=== PATIENT | male | born 1955 | race Caucasian/White ===

== ENCOUNTER 2022-06-13 15:33 | Observation (INO) | payer BC, MEDICARE ==
[~2022-06-13] VITALS: Ht 187.9 cm; Wt 123.5 kg
[~2022-06-13 15:33] MED LIST: CLCX200C PO; GLIP10TA13 PO; MTF500T PO; OMEP-10 PO; methylin PO
[2022-06-14] VITALS (14 sets, daily range): BP systolic 121–191; BP diastolic 59–95
[2022-06-14] MEDS ORDERED: polyethylene glycoL POWDER 17 GM (MIRALAX) PACK PO PRN (13:30)
[2022-06-14] MEDS ORDERED: LACTULOSE SYRUP 10GM/15ML (ENULOSE) 30ML UDC PO PRN (13:30)
[2022-06-14] MEDS ORDERED: diphenhydrAMINE 25 MG TAB (BENADRYL) PO PRN (13:30)
[2022-06-14] MEDS ORDERED: ONDANSETRON 4 MG (ZOFRAN) ORAL DISSOLVE TAB PO PRN (13:30)
[2022-06-14] MEDS ORDERED: MILK OF MAGNESIA 400 MG/5 ML 30 ML UDC PO PRN (13:30)
[2022-06-14] MEDS ORDERED: ACETAMINOPHEN 325 MG TABLET PO PRN (13:30)
[2022-06-14] MEDS ORDERED: ONDANSETRON 4 MG/2 ML (SDV) Z0FRAN IV PRN (13:30)
[2022-06-14] MEDS ORDERED: diphenhydrAMINE 50 MG/ML INJ (BENADRYL) IVP PRN (13:30)
[2022-06-14] MEDS ORDERED: MELATONIN 3 MG TABLET PO PRN (13:30)
[2022-06-14] MEDS ORDERED: CALCIUM CARBONATE 500 MG (TUMS) TAB.CHEW PO PRN (13:30)
[2022-06-14] MEDS ORDERED: ANTACID SUSP 30 ML UDC (MYLANTA) PO PRN (13:30)
[2022-06-14] MEDS ORDERED: BISACODYL 10 MG SUPP (DULCOLAX) PR PRN (13:30)
[2022-06-14] MEDS ORDERED: RT-ALBUTEROL SULF 2.5 MG/3 ML PRE-MIX VIAL INH PRN (14:45)
--- NOTE | 2022-06-14 14:57 | History & Physical ---
KEENAN REAL 06/14/22 1457: History of Present Illness History of Present Illness Reason for visit/HPI Maximilian Fulton is a 66y/o M w/ a PMH of diabetes mellitus and HTN who presents due to occlusion of left popliteal artery. Pt was transferred here today from [place]. He reports that about 4 weeks ago he developed a scratch on the bottom of his foot after stepping on something, he is unsure exactly when he did it. Then 2 weeks ago he fell through a floor and scratched his left soto. Says that both areas were not causing him issues until 4 days ago when his left foot and leg began to swell and became painful. Went into the ER 2 days ago in [place] because of the pain and swelling. He was admitted there at this time. Pt states that during his stay there he was found to have an occlusion of his left popliteal artery. He did have a debridement done on his left foot today at [place] by Dr. Morris. Currently, he says that the pain in his foot is about a 5/10. Describes the pain as sharp. No previous history of blood clots. Denies having an SOB, cough, fever, or chills. Denies any pain or swelling in his other leg. When asked he denies having any other concerns. Date of Admission Jun 14, 2022 at 13:14 I consulted on this patient on 06/14/22 14:44 Attending Physician Suhas Joshi MD Admitting Physician Admitting Physician: Anne Holloway DO Attending Physician: Anne Holloway DO Consult Allergies and Home Medications Allergies Coded Allergies: morphine (Unverified Allergy, Unknown, 07/09/14) Patient Home Medication List Daptomycin (Daptomycin) 500 Mg Vial, 500 MG IV DAILY, (Reported) Entered as Reported by: SERGIO OLIVER on 06/14/221610 Last Action: Reviewed Gabapentin (Gabapentin) 100 Mg Capsule, 100 MG PO TID, (Reported) Entered as Reported by: SERGIO OLIVER on 06/14/221610 Last Action: Reviewed Hydrocodone/Acetaminophen (Hydrocodone-Acetamin 5-325 mg) 5 Mg-325 Mg Tablet, 1 EA PO Q4H PRN for PAIN-MODERATE (5-7), (Reported) Entered as Reported by: SERGIO OLIVER on 06/14/221610 Last Action: Reviewed Insulin Detemir (Levemir Flextouch) 100 Unit/Ml (3 Ml) Insuln.pen, 60 UNITS SC BID, (Reported) Entered as Reported by: SERGIO OLIVER on 06/14/221610 Last Action: Reviewed Insulin Regular, Human (NovoLIN R Flexpen) 100 Unit/Ml (3 Ml) Insuln.pen, 20 UNIT SQ AC, (Reported) Entered as Reported by: SERGIO OLIVER on 06/14/221610 Last Action: Reviewed Lisinopril (Lisinopril) 20 Mg Tablet, 20 MG PO DAILY, (Reported) Entered as Reported by: SERGIO OLIVER on 06/14/221610 Last Action: Reviewed Pantoprazole Sodium (Pantoprazole Sodium) 40 Mg Tablet.dr, 40 MG PO DAILY, (Reported) Entered as Reported by: SERGIO OLIVER on 06/14/221610 Last Action: Reviewed Discontinued Medications Celecoxib (Celebrex) 200 Mg Capsule, 1 EACH PO DAILY Discontinued Reason: No Longer Taking Prescribed by: TONY APONTE WCC on 11/03/131452 Last Action: Discontinued Glipizide (Glipizide) 10 Mg Tablet, 1 EACH PO DAILY Discontinued Reason: No Longer Taking Prescribed by: TONY APONTE WCC on 11/03/131452 Last Action: Discontinued Metformin Hcl (Metformin 500 Mg) 500 Mg Tablet, 1 EACH PO BID WITH MEALS Discontinued Reason: No Longer Taking Prescribed by: TONY APONTE WCC on 11/03/131452 Last Action: Discontinued Omeprazole (Prilosec 20 Mg) 20 Mg Capsule.dr, 20 MG PO DAILY Discontinued Reason: No Longer Taking Prescribed by: TONY APONTE WCC on 11/03/131452 Last Action: Discontinued [methylin] , 10 TAB PO BID Discontinued Reason: No Longer Taking Prescribed by: TONY APONTE WCC on 11/03/131452 Last Action: Discontinued Past Otzwtpi-Cpwqfu-Zoruhm Hx Patient Social History Marrital Status: Employed/Student: retired Tobacco Use?: No Smoking Status: Never a Smoker Substance use?: No Alcohol Use?: Yes Alcohol type: Beer Alcohol Frequency: Daily Pt feels they are or have been: No Immunizations Up To Date Tetanus Booster (TDap): Less Than 5 Years Hepatitis A: No Hepatitis B: No Current Status Advance Directives: No Advance Directive Location: Unable to obtain copy Communicates: Verbally Primary Language: Kyrgyz Preferred Spoken Language: Kyrgyz Sensory deficits: Vision impairment Past Medical History Surgeries: Orthopedic (rotor cuff, carpal tunnel release x3) Hypertension Diabetes, Non-Insulin dep Family Medical History No Pertinent Family Hx Review of Systems Constitutional: No chills, No fever EENTM: No blurred vision, No double vision Respiratory: No cough, No dyspnea on exertion Cardiovascular: No chest pain, No palpitations Gastrointestinal: No abdominal pain, No nausea, No vomiting Genitourinary: No dysuria, No hematuria Musculoskeletal: No back pain; joint swelling (left leg) Psychiatric/Neurological: Denies Headache, Denies Numbness, Denies Paresthesia Physical Exam Vital Signs Vital Signs - First Documented 06/14/22 06/14/22 13:30 14:25 Temp 37.1 Pulse 68 Resp 19 B/P (MAP) 189/94 (125) Pulse Ox 99 O2 Delivery Room Air Capillary Refill : Height, Weight, BMI Height: '" Weight: lbs. oz. kg; 34.75 BMI Method: General Appearance: No Apparent Distress, WD/WN HEENT: PERRL/EOMI; No Photophobia Neck: Non Tender, Supple Respiratory: Chest Non Tender, Lungs Clear, Normal Breath Sounds, No Accessory Muscle Use, No Respiratory Distress Cardiovascular: Regular Rate, Rhythm, No Murmur, Normal Peripheral Pulses Gastrointestinal: Non Tender, Soft Extremity: No Calf Tenderness, Inflammation (left leg to knee), Swelling (left leg to the knee), Other (wound on plantar surface of left foot that was debrided today, scrap on left soto) Neurologic/Psychiatric: Alert, Oriented x3, Normal Mood/Affect Skin: Erythema (left leg to knee) Lymphatic: No Adenopathy Assessment/Plan Assessment and Plan Occlusion of left popliteal artery -cardiology consulted (Dr. Corbett) -lovenox started -start pain control medications -NPO for possible procedure S/p debridement of left plantar surface of foot -done today at [place] by Dr. Morris -start daptomycin -pain control -regular dressing changes -monitor for signs of infection Diabetes mellitus type 2 -start levemir -sliding scale insulin -will need diabetic diet when able to eat Hypertension -will defer to management to cardiology DVT prophylaxis: lovenox, SCDs contraindicated due to current thrombus GI prophylaxis: protonix Code status: full code Diet:NPO Clinical Quality Measures DVT/VTE Risk/Contraindication: Contraindications-Mechi: Other *list below* Other: ANNE Lerner DO 06/14/222109: History of Present Illness History of Present Illness Reason for visit/HPI CC: Left leg arterial vascular disease in need of stent with intervention HPI: This is a gentleman who sees Dr. Suhas Joshi as an outpatient. He has a past medical history of diabetes. He is noncompliant with insulin for quite some time. HgA1C is 12. He moved from [facility] to higher level of care at [facility] due to peripheral catheterization needed by Dr. Corbett due to arterial ultrasound showing blockage of the left popliteal artery. That would facilitate healing of the left foot wound, status post debridement by Dr. Morris. Maintained on Daptomycin through PICC line 500 mg IV daily. His blood sugars are much better but still requiring Levemir 60 units BID and Novolin regular insulin 20 units before meals. Date Seen by a Provider: Jun 14, 2022 Time Seen by a Provider: 14:00 Allergies and Home Medications Allergies Coded Allergies: morphine (Unverified Allergy, Unknown, 07/09/14) Patient Home Medication List Home Medication List Reviewed: Yes Daptomycin (Daptomycin) 500 Mg Vial, 500 MG IV DAILY, (Reported) Entered as Reported by: SERGIO OLIVER on 06/14/221610 Last Action: Reviewed Gabapentin (Gabapentin) 100 Mg Capsule, 100 MG PO TID, (Reported) Entered as Reported by: SERGIO OLIVER on 06/14/221610 Last Action: Reviewed Hydrocodone/Acetaminophen (Hydrocodone-Acetamin 5-325 mg) 5 Mg-325 Mg Tablet, 1 EA PO Q4H PRN for PAIN-MODERATE (5-7), (Reported) Entered as Reported by: SERIGO OLIVER on 06/14/221610 Last Action: Reviewed Insulin Detemir (Levemir Flextouch) 100 Unit/Ml (3 Ml) Insuln.pen, 60 UNITS SC BID, (Reported) Entered as Reported by: SERGIO OLIVER on 06/14/221610 Last Action: Reviewed Insulin Regular, Human (NovoLIN R Flexpen) 100 Unit/Ml (3 Ml) Insuln.pen, 20 UNIT SQ AC, (Reported) Entered as Reported by: SERGIO OLIVER on 06/14/221610 Last Action: Reviewed Lisinopril (Lisinopril) 20 Mg Tablet, 20 MG PO DAILY, (Reported) Entered as Reported by: SERGIO OLIVER on 06/14/221610 Last Action: Reviewed Pantoprazole Sodium (Pantoprazole Sodium) 40 Mg Tablet.dr, 40 MG PO DAILY, (Reported) Entered as Reported by: SERGIO OLIVER on 06/14/221610 Last Action: Reviewed Discontinued Medications Celecoxib (Celebrex) 200 Mg Capsule, 1 EACH PO DAILY Discontinued Reason: No Longer Taking Prescribed by: TONY APONTE WCC on 11/03/131452 Last Action: Discontinued Glipizide (Glipizide) 10 Mg Tablet, 1 EACH PO DAILY Discontinued Reason: No Longer Taking Prescribed by: TONY APONTE WCC on 11/03/131452 Last Action: Discontinued Metformin Hcl (Metformin 500 Mg) 500 Mg Tablet, 1 EACH PO BID WITH MEALS Discontinued Reason: No Longer Taking Prescribed by: TONY APONET WCC on 11/03/131452 Last Action: Discontinued Omeprazole (Prilosec 20 Mg) 20 Mg Capsule.dr, 20 MG PO DAILY Discontinued Reason: No Longer Taking Prescribed by: TONY APONTE WCC on 11/03/131452 Last Action: Discontinued [methylin] , 10 TAB PO BID Discontinued Reason: No Longer Taking Prescribed by: TONY APONTE WCC on 11/03/131452 Last Action: Discontinued Past Hshoolm-Fgvcou-Rvgdan Hx Patient Social History Marrital Status: Employed/Student: retired Past Medical History Hypertension Diabetes, Insulin dep Review of Systems Constitutional: see HPI Physical Exam General Appearance: No Apparent Distress, WD/WN Eyes: Bilateral Eye Normal Inspection, Bilateral Eye PERRL, Bilateral Eye EOMI HEENT: PERRL/EOMI, TMs Normal, Normal ENT Inspection, Pharynx Normal Neck: Full Range of Motion, Normal Inspection, Non Tender, Supple, Carotid Bruit Respiratory: Chest Non Tender, Lungs Clear, Normal Breath Sounds, No Accessory Muscle Use, No Respiratory Distress Cardiovascular: Regular Rate, Rhythm, No Edema, No Gallop, No JVD, No Murmur, Normal Peripheral Pulses Gastrointestinal: Normal Bowel Sounds, No Organomegaly, No Pulsatile Mass, Non Tender, Soft Back: Normal Inspection, No CVA Tenderness, No Vertebral Tenderness Extremity: Normal Capillary Refill, Normal Inspection, Normal Range of Motion, Non Tender, No Calf Tenderness, No Pedal Edema Neurologic/Psychiatric: Alert, Oriented x3, No Motor/Sensory Deficits, Normal Mood/Affect Skin: Normal Color, Warm/Dry Lymphatic: No Adenopathy Assessment/Plan Assessment and Plan Assessment: Left DM ulcer with abscess s/p debridement Left leg cellulitis 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 I reviewed and verified all information documented by the medical student and made modifications to such information, when appropriate. I personally performed the physical exam and medical decision making. Anne Holloway, Jun 14, 2022,21:10 KEENAN REAL Jun 14, 2022 14:57 ANNE HOLLOWAY DO Jun 14, 2022 21:10
[2022-06-14] MEDS: ENOXAPARIN 40 MG/0.4 ML (LOVENOX) SYR SC SCH (15:06)
[2022-06-14] MEDS: NS IV 1000 ML 1,000 ML IV SCH (15:06)
[2022-06-14] MEDS: HYDROmorphone 2 MG/ML VIAL (DILAUDID) IV PRN ×2 (15:15→20:23)
[2022-06-14] MEDS ORDERED: DAPT500V18 IV (16:11)
[2022-06-14] MEDS ORDERED: LISI20TA26 PO (16:11)
[2022-06-14] MEDS ORDERED: GABA-486 PO (16:11)
[2022-06-14] MEDS ORDERED: INSU100I29 SC (16:11)
[2022-06-14] MEDS ORDERED: ACHD5005 PO (16:11)
[2022-06-14] MEDS ORDERED: PANT40TA52 PO (16:11)
[2022-06-14] MEDS ORDERED: INSU100I51 SQ (16:11)
[2022-06-14] MEDS: inSUlin ASPART (NovoLOG) 1 UNIT/0.01 ML (CHARGE PER UNIT) SC SCH ×2 (16:37→21:37)
--- NOTE | 2022-06-14 17:02 | CONSULTATION REPORT ---
DATE OF SERVICE: 06/14/2022 ADMITTING PHYSICIAN: Dr. Lyle. HISTORY OF PRESENT ILLNESS: The patient is a 66-year-old male who was admitted to [facility] for pain along the left foot. He had reported an area overlying the first metatarsophalangeal joint region along the plantar surface that became irritated and then did open up. This area became painful as well. He was admitted and placed on IV antibiotics and underwent debridement. A duplex ultrasound was performed of the extremity, which did show a good triphasic flow through the superficial femoral arteries bilaterally; however, along the left lower extremity only monophasic flow through the popliteal and at the trifurcation with the posterior tibial, peroneal as well as anterior tibial arteries with pressures only approximately 60 mmHg. The patient was transferred to [facility] for possible revascularization. PAST MEDICAL HISTORY: Peripheral vascular disease, diabetes, hypertension, degenerative joint disease. PAST SURGICAL HISTORY: Laparoscopic cholecystectomy, carpal tunnel release bilaterally, rotator cuff repair. ALLERGIES: MORPHINE. MEDICATIONS: Celebrex 200 mg daily, glipizide 10 mg daily, metformin 500 mg b.i.d., omeprazole 20 mg daily, 10 tabs b.i.d. SOCIAL HISTORY: Negative smoke, negative alcohol. FAMILY HISTORY: Noncontributory. VITAL SIGNS: Temperature 37.1, blood pressure 150/77, pulse 70, respirations 28, pulse ox 95% on room air. REVIEW OF SYSTEMS: Well-nourished male currently in no acute distress. He is not experiencing any shortness of breath or difficulty breathing. No chest pain, palpitations, diaphoresis. No nausea, vomiting, no diarrhea or constipation. No fever, chills, no recent inadvertent weight loss with pain along the plantar aspect of the left foot. PHYSICAL EXAMINATION: CHEST: Few scattered rales bilaterally. HEART: Regular, no murmurs. EXTREMITIES: No lower extremity edema, negative Homans sign with a warm left foot, likely secondary to reactive hyperemia. There is an open wound along the plantar surface of the first metatarsophalangeal joint. This appears to be viable with no purulence, nonpalpable posterior tibial or dorsalis pedis. The right lower extremity posterior tibial and dorsalis pedis pulses are palpable. HEENT: No scleral icterus. NECK: No cervical lymphadenopathy. ABDOMEN: Soft, nontender, nondistended. SKIN: Warm, dry. ASSESSMENT AND PLAN: A 66-year-old male with diabetic peripheral atherosclerosis and peripheral vascular disease causing diabetic foot ulcer and arterial insufficiency of the left lower extremity. The open wound has been debrided and does look to be intact. He will be seen by Cardiology in hopes of proceeding with aortogram, bilateral runoff and potential intervention with angioplasty and stent placement to allow for revascularization to allow the area to heal. For now, we will recommend continued dressing changes; however, wound care has been consulted and once they have made their recommendations, we recommend continuation of those directions. Job ID: [id number] DocumentID: [id number] Dictated Date: 06/14/2022 16:06:25 Geographic Information System Surveyor Date: 06/14/2022 17:01:17 Dictated By: MARIAMA MAS MD
[2022-06-14] MEDS ORDERED: amLODIPine 5 MG (NORVASC) TAB PO ONE (20:30)
[2022-06-14] MEDS: SENNOSIDES 8.6 MG (SENOKOT) TAB PO SCH (21:36)
[2022-06-14] MEDS: DOCUSATE SODIUM 100 MG (COLACE) CAP PO SCH (21:36)
[2022-06-15] VITALS (7 sets, daily range): BP systolic 111–143; BP diastolic 65–98
[2022-06-15] MEDS: HYDROmorphone 2 MG/ML VIAL (DILAUDID) IV PRN ×8 (01:46→22:37)
[2022-06-15] MEDS: NS IV 1000 ML 1,000 ML IV SCH ×2 (05:45→13:30)
[2022-06-15 06:06] LABS: BASOPHILS # (AUTO) 0.1 10^3/uL (0.0-0.1); BASOPHILS % (AUTO) 1 % (0-10); EOSINOPHILS # (AUTO) 0.2 10^3/uL (0.0-0.3); EOSINOPHILS % (AUTO) 2 % (0-10); HEMATOCRIT 36 % (40-54); HEMOGLOBIN 11.9 g/dL (13.3-17.7); LYMPHOCYTES # (AUTO) 2.4 10^3/uL (1.0-4.0); LYMPHOCYTES % (AUTO) 24 % (12-44); MEAN CORPUSCULAR HEMOGLOBIN 30 pg (25-34); MEAN CORPUSCULAR HGB CONC 33 g/dL (32-36); MEAN CORPUSCULAR VOLUME 92 fL (80-99); MEAN PLATELET VOLUME 12.5 fL (9.0-12.2); MONOCYTES # (AUTO) 1.1 10^3/uL (0.0-1.0); MONOCYTES % (AUTO) 10 % (0-12); NEUTROPHILS # (AUTO) 6.5 10^3/uL (1.8-7.8); NEUTROPHILS % (AUTO) 63 % (42-75); PLATELET COUNT 229 10^3/uL (130-400); WHITE BLOOD COUNT 10.3 10^3/uL (4.3-11.0)
[2022-06-15] MEDS: inSUlin ASPART (NovoLOG) 1 UNIT/0.01 ML (CHARGE PER UNIT) SC SCH ×5 (06:08→21:02)
[2022-06-15 06:20] LABS: ALBUMIN 3.4 GM/DL (3.2-4.5); POTASSIUM 3.9 MMOL/L (3.6-5.0)
[2022-06-15 06:21] LABS: CALCIUM 8.5 MG/DL (8.5-10.1)
[2022-06-15 06:22] LABS: TOTAL PROTEIN 6.6 GM/DL (6.4-8.2)
[2022-06-15 06:24] LABS: BILIRUBIN,TOTAL 0.8 MG/DL (0.1-1.0)
[2022-06-15 06:26] LABS: CREATININE SERUM 0.9 MG/DL (0.60-1.30)
[2022-06-15] MEDS ORDERED: HEParin (CATH LAB) 2,000 ML IV ONE (07:35)
[2022-06-15] MEDS ORDERED: LIDOCAINE 1% INJ 20 ML VIAL ONE (07:35)
--- NOTE | 2022-06-15 07:55 | Consultation-Cardiology ---
HPI-Cardiology Cardiology Consultation Date of Consultation 06/15/22 Date of Admission Time Seen by Provider: 07:51 Indication: Foot ulcer HPI 66 years old gentleman with history of diabetes mellitus, hypertension hyperlipidemia and sleep apnea. Sustained an injury to his left foot. Had nonhealing wound. Was admitted to [facility] and underwent debridement, arterial Doppler suggestive of popliteal occlusion. He was transferred to [place] for peripheral angiogram and possible intervention. He denied any previous cardiac history, no chest pain or shortness of breath, occasional leg cramps but reported that he is able to walk for over a mile without difficulties. Home Medications & Allergies Allergies: Coded Allergies: morphine (Unverified Allergy, Unknown, 07/09/14) Home Medication List Reviewed: Yes GNB-Suzrvz-Micfrd Hx Patient Social History Marital Status: Employed/Student: retired Smoking Status: Never a Smoker Have you traveled recently?: No Alcohol Use?: Yes Past Medical History Discussed below Family Medical History Significant Family History: No Pertinent Family Hx Family Medical Hx Noncontributory Review of Systems-General Review of Systems Constitutional: see HPI, weakness EENTM: No blurred vision, No double vision Respiratory: see HPI; No cough, No dyspnea on exertion Cardiovascular: see HPI; No chest pain, No palpitations Gastrointestinal: see HPI; No abdominal pain, No nausea, No vomiting Genitourinary: see HPI; No dysuria, No hematuria Musculoskeletal: see HPI; No back pain; joint swelling (left leg) Skin: no symptoms reported, see HPI Psychiatric/Neurological: See HPI; Denies Headache, Denies Numbness, Denies Paresthesia Reviewed Test Results Reviewed Test Results Lab Laboratory Tests Test 06/14/22 16:36 06/14/22 21:07 06/15/22 05:00 06/15/22 05:30 Range/Units Glucometer 132 H 111 H 70-110 MG/DL Sodium Level 134 L 135-145 MMOL/L Potassium Level 3.9 3.6-5.0 MMOL/L Chloride Level 103 98-107 MMOL/L Carbon Dioxide Level 24 21-32 MMOL/L Anion Gap 7 5-14 MMOL/L Blood Urea Nitrogen 12 7-18 MG/DL Creatinine 0.90 0.60-1.30 MG/DL Estimat Glomerular Filtration Rate 94 BUN/Creatinine Ratio 13 Glucose Level 262 H 70-105 MG/DL Calcium Level 8.5 8.5-10.1 MG/DL Corrected Calcium 9.0 8.5-10.1 MG/DL Total Bilirubin 0.8 0.1-1.0 MG/DL Aspartate Amino Transf (AST/SGOT) 15 5-34 U/L Alanine Aminotransferase (ALT/SGPT) 22 0-55 U/L Alkaline Phosphatase 48 40-136 U/L Total Protein 6.6 6.4-8.2 GM/DL Albumin 3.4 3.2-4.5 GM/DL White Blood Count 10.3 4.3-11.0 10^3/uL Red Blood Count 3.93 L 4.30-5.52 10^6/uL Hemoglobin 11.9 L 13.3-17.7 g/dL Hematocrit 36 L 40-54 % Mean Corpuscular Volume 92 80-99 fL Mean Corpuscular Hemoglobin 30 25-34 pg Mean Corpuscular Hemoglobin Concent 33 32-36 g/dL Red Cell Distribution Width 12.0 10.0-14.5 % Platelet Count 229 130-400 10^3/uL Mean Platelet Volume 12.5 H 9.0-12.2 fL Immature Granulocyte % (Auto) 0 % Neutrophils (%) (Auto) 63 42-75 % Lymphocytes (%) (Auto) 24 12-44 % Monocytes (%) (Auto) 10 0-12 % Eosinophils (%) (Auto) 2 0-10 % Basophils (%) (Auto) 1 0-10 % Neutrophils # (Auto) 6.5 1.8-7.8 10^3/uL Lymphocytes # (Auto) 2.4 1.0-4.0 10^3/uL Monocytes # (Auto) 1.1 H 0.0-1.0 10^3/uL Eosinophils # (Auto) 0.2 0.0-0.3 10^3/uL Basophils # (Auto) 0.1 0.0-0.1 10^3/uL Immature Granulocyte # (Auto) 0.0 0.0-0.1 10^3/uL Test 06/15/22 06:07 Range/Units Glucometer 265 H 70-110 MG/DL Physical Exam Physical Exam Vital Signs Vital Signs - First Documented 06/14/22 06/14/22 13:30 14:25 Temp 37.1 Pulse 68 Resp 19 B/P (MAP) 189/94 (125) Pulse Ox 99 O2 Delivery Room Air Capillary Refill : Height, Weight, BMI Height: '" Weight: lbs. oz. kg; 34.75 BMI Method: General Appearance: No Apparent Distress, WD/WN Eyes: Bilateral Eye Normal Inspection, Bilateral Eye PERRL, Bilateral Eye EOMI HEENT: PERRL/EOMI, TMs Normal, Normal ENT Inspection, Pharynx Normal Neck: Full Range of Motion, Normal Inspection, Non Tender, Supple, Carotid Bruit Respiratory: Chest Non Tender, Lungs Clear, Normal Breath Sounds, No Accessory Muscle Use, No Respiratory Distress Cardiovascular: Regular Rate, Rhythm, No Edema, No Gallop, No JVD, No Murmur, Other (Diminished dorsalis pedis pulse on the left) Gastrointestinal: Normal Bowel Sounds, No Organomegaly, No Pulsatile Mass, Non Tender, Soft Back: Normal Inspection, No CVA Tenderness, No Vertebral Tenderness Extremity: Normal Capillary Refill, Normal Inspection, Normal Range of Motion, Non Tender, No Calf Tenderness, No Pedal Edema Neurologic/Psychiatric: Alert, Oriented x3, No Motor/Sensory Deficits, Normal Mood/Affect Skin: Normal Color, Warm/Dry Lymphatic: No Adenopathy A/P-Cardiology Admission Diagnosis Peripheral arterial disease Foot ulcer Hypertension Hyperlipidemia Diabetes mellitus. Assessment/Plan Peripheral vascular disease, with foot ulcer. Arterial duplex to the lower extremities suggestive of high-grade stenosis at the left popliteal artery greater than 75%. I am planning to proceed with peripheral angiogram and possible angioplasty today. Foot ulcer, underwent debridement with Dr. Morris on June 14, 2022 Hypertension, continue current medication and monitor Hyperlipidemia, evaluate lipid profile Diabetes mellitus, followed and managed by primary care physician Obstructive sleep apnea, intolerant to CPAP Obesity, BMI 34, we discussed weight loss. Clinical Quality Measures DVT/VTE Risk/Contraindication: Contraindications-Mechi: Other *list below* Other: pvd JOE STRICKLAND MD Jun 15, 2022 07:55
[2022-06-15 08:08] LABS: CHOLESTEROL 143 MG/DL (< 200); HDL CHOLESTEROL 43 MG/DL (40-60); TRIGLYCERIDES 99 MG/DL (<150); VLDL CHOLESTEROL 20 MG/DL (5-40)
[2022-06-15] MEDS: SENNOSIDES 8.6 MG (SENOKOT) TAB PO SCH ×2 (09:19→21:02)
[2022-06-15] MEDS: DOCUSATE SODIUM 100 MG (COLACE) CAP PO SCH ×2 (09:19→21:02)
[2022-06-15] MEDS: amLODIPine 5 MG (NORVASC) TAB PO SCH (09:19)
[2022-06-15] MEDS ORDERED: fentaNYL INJ 100 MCG/2 ML AMP ONE (11:21)
[2022-06-15] MEDS ORDERED: MIDAZOLAM 5 MG/5 ML (VERSED) VIAL ONE (11:21)
[2022-06-15] MEDS ORDERED: OXC5T PO (12:02)
[2022-06-15] MEDS ORDERED: INSU100I29 SC (12:02)
[2022-06-15] MEDS ORDERED: [UNRECOGNIZED DRUG - CODE] MC (12:02)
[2022-06-15] MEDS ORDERED: INSU100I51 SQ (12:02)
[2022-06-15] MEDS ORDERED: HEParin 1000 UNIT/ML (10ML VIAL) FOR BOLUS ONE (12:07)
--- NOTE | 2022-06-15 12:25 | Progress Note ---
KEENAN REAL 06/15/22 1225: Subjective Date Seen by a Provider: Jun 15, 2022 Subjective/Events-last exam Maximilian Fulton is a 66y/o M w/ a PMH of diabetes mellitus and HTN who is here due to peripheral vascular disease of the left leg. Pt was transferred here on 06/14/22 from [facility] due to needing a peripheral catheterization to be done by Dr. Corbett due to arterial ultrasound showing blockage of the left popliteal artery. Went into the ER on 06/11 in [place] because his left leg and foot had swollen and become painful. Also had a wound on the bottom of his foot that was from something he stepped on about 4 weeks ago. He was admitted from the ER that same day due to the artery blockage and foot wound. He did have a debridement done on his left foot on 06/[address] [place] [address] Morris. Maintained on Daptomycin through PICC line 500 mg IV daily. He is noncompliant with insulin for quite some time with a HgA1C of 12. His blood sugars are much better but still requiring Levemir 60 units BID and Novolin regular insulin 20 units before meals. Today pt reports that his foot pain is improved. Currently a 3/10. States that w/o medications the pain is a 10/10. Denies any increase in his leg swelling. He was able to sleep last night. No other concerns when asked. He will be undergoing a peripheral angiogram and possible intervention this afternoon w/ Dr. Corbett. Review of Systems General: No Chills, No Other (fever) HEENT: No Head Aches, No Visual Changes Pulmonary: No Dyspnea, No Cough Cardiovascular: No: Chest Pain, Palpitations Gastrointestinal: No: Nausea, Vomiting, Abdominal Pain Genitourinary: No Dysuria, No Hematuria Musculoskeletal: leg pain (left); No: neck pain, back pain Neurological: No: Weakness, Numbness Objective Exam Last Set of Vital Signs Vital Signs Date Time Temp Pulse Resp B/P (MAP) Pulse Ox O2 Delivery O2 Flow Rate FiO2 06/15/22 11:51 37.2 70 16 136/65 (88) 94 06/15/22 08:07 Room Air Capillary Refill : I&O Intake and Output 06/15/22 00:00 Intake Total 200 ml Output Total 0 ml Balance 200 ml Intake Oral 200 ml Output Urine Total 0 ml # Voids 1 Daily Weight Change No General: Alert, Oriented X3 Neck: Supple Lungs: Clear to Auscultation, Normal Air Movement Heart: Regular Rate, No Murmurs Abdomen: Soft, No Tenderness Extremities: Other (left leg swollen and erythermatous, wound present on plantar surface of left foot) Neuro: Normal Speech Psych/Mental Status: Mental Status NL, Mood NL Results Lab Laboratory Tests 06/14/22 16:36: Glucometer 132H 06/14/22 21:07: Glucometer 111H 06/15/22 05:00: Sodium Level 134L, Potassium Level 3.9, Chloride Level 103, Carbon Dioxide Level 24, Anion Gap 7, Blood Urea Nitrogen 12, Creatinine 0.90, Estimat Glomerular Filtration Rate 94, BUN/Creatinine Ratio 13, Glucose Level 262H, Calcium Level 8.5, Corrected Calcium 9.0, Total Bilirubin 0.8, Aspartate Amino Transf (AST/SGOT) 15, Alanine Aminotransferase (ALT/SGPT) 22, Alkaline Phosphatase 48, Total Protein 6.6, Albumin 3.4, Triglycerides Level 99, Cholesterol Level 143, LDL Cholesterol Direct 89, VLDL Cholesterol 20, HDL Cholesterol 43 06/15/22 05:30: White Blood Count 10.3, Red Blood Count 3.93L, Hemoglobin 11.9L, Hematocrit 36L, Mean Corpuscular Volume 92, Mean Corpuscular Hemoglobin 30, Mean Corpuscular Hemoglobin Concent 33, Red Cell Distribution Width 12.0, Platelet Count 229, Mean Platelet Volume 12.5H, Immature Granulocyte % (Auto) 0, Neutrophils (%) (Auto) 63, Lymphocytes (%) (Auto) 24, Monocytes (%) (Auto) 10, Eosinophils (%) (Auto) 2, Basophils (%) (Auto) 1, Neutrophils # (Auto) 6.5, Lymphocytes # (Auto) 2.4, Monocytes # (Auto) 1.1H, Eosinophils # (Auto) 0.2, Basophils # (Auto) 0.1, Immature Granulocyte # (Auto) 0.0 06/15/22 06:07: Glucometer 265H 06/15/22 11:09: Glucometer 232H Assessment/Plan Assessment/Plan Assess & Plan/Chief Complaint Occlusion of left popliteal artery -will be undergoing a peripheral angiogram and possible intervention today -lovenox started yesterday -continue pain control -NPO today for procedure S/p debridement of left plantar surface of foot -done 06/[address] [place] [address] Morris -continue daptomycin -pain control -regular dressing changes -monitor for signs of infection Diabetes mellitus type 2 -continue levemir -sliding scale insulin -given 20 units of levemir this AM due to high blood glucose in prep for surgery -will need diabetic diet when able to eat Hypertension -will defer to management to cardiology DVT prophylaxis: lovenox, SCDs contraindicated due to current thrombus GI prophylaxis: protonix Code status: full code Diet:NPO Clinical Quality Measures Admission Status Admission Dx Occlusion of left popliteal artery -cardiology consulted (Dr. Corbett) -lovenox started -start pain control medications -NPO for possible procedure S/p debridement of left plantar surface of foot -done today at [place] by Dr. Morris -start daptomycin -pain control -regular dressing changes -monitor for signs of infection Diabetes mellitus type 2 -start levemir -sliding scale insulin -will need diabetic diet when able to eat Hypertension -will defer to management to cardiology DVT prophylaxis: lovenox, SCDs contraindicated due to current thrombus GI prophylaxis: protonix Code status: full code Diet:NPO DVT/VTE Risk/Contraindication: Contraindications-Mechi: Other *list below* Other: pvd MARYLIN HOLLOWAY DO 06/15/222126: Subjective Time Seen by a Provider: 11:00 Subjective/Events-last exam Patient had intervention of left popliteal artery Supervisory-Addendum Brief Verification & Attestation Participated in pt care: history, MDM, physical Personally performed: exam, history, MDM, supervision of care Care discussed with: Medical Student Procedures: n/a Results interpretation: Verified all documentation Verification and Attestation of Medical Student E/M Service A medical student performed and documented this service in my presence. I reviewed and verified all information documented by the medical student and made modifications to such information, when appropriate. I personally performed the physical exam and medical decision making. Marylin Holloway, Jun 15, 2022,21:26 KEENAN REAL Jun 15, 2022 12:25 MARYLIN HOLLOWAY DO Jun 15, 2022 21:27
[2022-06-15] MEDS ORDERED: CLOPIDOGREL 300 MG (PLAVIX) TABLET PO ONE (12:30)
[2022-06-15] MEDS ORDERED: ASPIRIN 325 MG (5 GR) TABLET ONE ×2 (12:30→12:35)
--- NOTE | 2022-06-15 12:35 | Cardiac Procedure Note-CS/ASA ---
Pre-Procedure Note Pre-Op Procedure Note Date of Available H&P: Jun 15, 2022 Date H&P Reviewed: Jun 15, 2022 Time H&P Reviewed: 11:30 History & Physical: H&P Reviewed, Patient Examed, No changes noted Pre-Operative Diagnosis: Critical limb ischemia Conscious Sedation Pre-Proced Time 11:30 ASA Score 3 For ASA 3 and 4: Consider anesthesia and medical clearance. Also, for patients with a history of failed moderate sedation consider anesthesia. Airway Lungs Heart ASA score ASA 1: a normal healthy patient ASA 2: a patient with a mild systemic disease (mid diabetes, controlled hypertension, obesity x ASA 3: a patient with a severe systemic disease that limits activity (angina, COPD, prior Myocardial infarction) ASA 4: a patient with an incapacitating disease that is a constant threat to life (CHF, renal failure) ASA 5: a moribund patient not expected to survive 24 hrs. (ruptured aneurysm) ASA 6: a declared brain- patient whose organs are being harvested. For emergent operations, add the letter E after the classification Mallampati Classification Grade 3 Sedation Plan Analgesia, Amnesia, Plan communicated to team members, Discussed options with patient/fam, Discussed risks with patient/fam The patient is an appropriate candidate to undergo the planned procedure, sedation, and anesthesia. The patient immediately re-assessed prior to indication. JOE STRICKLAND MD Jun 15, 2022 12:35
--- NOTE | 2022-06-15 12:41 | Peripheral Report ---
Peripheral Report Physician (s)/Locate Technician (s) Physician JOE STRICKLAND MD Pre-Procedure Diagnosis Pre-Procedure Diagnosis: Critical limb ischemia Post-Procedure Note Procedure Start Date: Jun 15, 2022 Name of Procedure: Bilateral lower extremities runoff Third order Additional imaging Balloon angioplasty to the left popliteal artery using drug-coated balloon Findings/Procedure Note PROCEDURE NOTE: 66-year-old gentleman with ischemic foot ulcer, critical limb ischemia, had an abnormal Doppler study. After explaining the procedure to the patient, all pros and cons were explained, all questions were answered. The patient signed the consent and then he was placed on the cardiac catheterization laboratory. The patient was placed on the cardiac catheterization laboratory. Groin was prepped SL fashion local anesthesia was used. Sheath placed in the right femoral artery, runoff to the right leg was done then using a rim catheter I placed it at the left common iliac artery and did runoff to the left leg. Patient has severe stenosis/subtotal occlusion at the popliteal artery behind the knee. I used a long Storq wire and remove the rim catheter and remove the sheath and placed a long 6 Congolese sheath down to the mid SFA. Cross the lesion with a Storq catheter then proceeded with balloon angioplasty using Atalissa 5 x 100 then I decided to use drug-coated balloon due to the fact that the lesion is limited short area localized behind the knee which pose significant stress on any stenting. Lutonic 6 x 40 drug-coated balloon was used inflated for 3 minutes. Then retracted and repeat angiogram showed excellent results. There was a lesion in the tibial artery. Distal lesion. The sheath was retracted and placed at the bifurcation and did 1 injection to evaluate the bifurcation, no complication noted. At the end of the procedure sheath was exchanged to a short 6 Congolese sheath then closure device deployed. FINDINGS: Right lower extremity, slow flow with mild disease down to the mid portion of the right leg, nonobstructive disease Left lower extremity, Left common femoral and common iliac arteries are normal with no obstructive disease Left SFA has mild disease nonobstructive disease Popliteal artery: Severe stenosis/subtotal occlusion in the popliteal artery behind the left knee, successful balloon angioplasty using Atalissa 5 x 100 then drug-coated balloon Lutonic 6 x 40 with excellent results. Anterior tibial artery has good flow down to the foot Peroneal artery has good flow to the foot Posterior tibial artery has 1 area of severe stenosis. We will continue to monitor it CONCLUSIONS: 1. Severe stenosis/subtotal occlusion in the left popliteal artery with s uccessful balloon angioplasty then using drug-coated balloon with balloon Lutonic 6 x 40 with excellent results. Mild residual stenosis nonobstructive disease 2. Severe stenosis in the mid posterior tibial artery, will continue to monitor closely 3. Otherwise nonobstructive disease on the left side. 4. Mild disease on the right side small vessel disease with nonobstructive dise ase DISCUSSION AND RECOMMENDATIONS: Patient was loaded with aspirin and Plavix, continue to maximize medical therapy Planning to repeat SHERRY in 1 month, if the wound is not healing I am planning to bring him back and attempt intervention on the posterior tibial artery Anesthesia Type: Conscious Sedation Estimated blood loss (mL): 20 ml Contrast Amount: 60 ml Total Radiation Dose: 245 mGy Post-Procedure Diagnosis Post-operative diagnosis: Critical limb ischemia Peripheral arterial disease Hypertension Hyperlipidemia JOE STRICKLAND MD Jun 15, 2022 12:41
[2022-06-15] MEDS ORDERED: PATIENT MAY USE OWN MEDS, ALL PO SCH (12:45)
[2022-06-15 13:13] LABS: INR 1.3 (0.8-1.4); PROTHROMBIN TIME PATIENT 16.5 SEC (12.2-14.7)
[2022-06-15 13:14] LABS: PARTIAL THROMBOPLASTIN TIME > 200 SEC (24-35)
[2022-06-15] MEDS: DAPTOmycin INJECTION 500 MG in NS (IVPB) 50 ML IV SCH (13:30)
[2022-06-15] MEDS: ENOXAPARIN 40 MG/0.4 ML (LOVENOX) SYR SC SCH (13:31)
--- NOTE | 2022-06-15 15:23 | Diagnostic Imaging Report ---
INDICATION: PICC line placement. COMPARISON: None FINDINGS: Single frontal radiographic view of the chest was obtained and shows normal cardiac silhouette and pulmonary vasculature. Left upper extremity PICC line is seen with tip in the SVC. Lungs are clear. There is no focal consolidation, large effusion, nor pneumothorax. Osseous structures show no gross acute abnormalities. IMPRESSION: 1. Left upper extremity PICC line with tip in the SVC. Dictated by: Dictated on workstation # [id number]
[2022-06-15] MEDS ORDERED: HYPOCHLOROUS ACID/NaCl (VASHE) 250 ML IR PRN (15:30)
--- NOTE | 2022-06-15 17:57 | Wound Care Assessment ---
Wound Care Assessment Date Seen by Provider: Jun 15, 2022 Time Seen by Provider: 17:49 Chief Complaint Diabetic foot ulcer HPI This pleasant 66 year old gentleman presented to ER at [facility] with erythematous, edematous foot with ulceration. He notes that he has had poorly controlled DM2 for some time (latest A1C12). While in ER, Dr. Morris debrided the affected area. He is on Daptomycing currently. He was also noted to have L. [employer] occlusion which was revascularized per Dr. Corbett today. He does also have a h/o CAD. He uses ETOH daily as well. He notes that he did have imaging done while at [facility] (I do not have access at this time). He plans to follow up with Dr. Sims in [place] following discharge tomorrow. Past Medical History: Admits Diabetes Type II, Admits Heart Disease, Admits Peripheral Artery Disease Smoking Status: Never a Smoker Recreational Drug Use: No Alcohol Use: Regular Use Review of Systems General: Other (Obesity) Exam Vital Signs Date Time Temp Pulse Resp B/P (MAP) Pulse Ox O2 Delivery O2 Flow Rate FiO2 06/15/22 16:00 60 15 140/74 (96) 97 Room Air 06/15/22 11:51 37.2 Capillary Refill : NONE General Appearance: WD/WN, no apparent distress, obese HEENT: other (hearing wnl) Neck: full range of motion Cardiovascular: no edema Respiratory: no respiratory distress, no accessory muscle use Extremities: pedal edema Neurologic/Psychiatric: alert, normal mood/affect, oriented x 3 Skin Problem Location: lower extremities Skin Character: bullous, drainage, erythema, swelling, tenderness Wound assessment: 1.5x1.5x0.2cm. The epithelialization is none. There is no tunneling or undermining. Drainage is large and serosanguinous. Granulation is none. Necrotic is large and slough. Margins show epibole. Blister in periwound deroofed at bedside. Results Laboratory Tests 06/14/22 21:07: Glucometer 111H 06/15/22 05:00: Sodium Level 134L, Potassium Level 3.9, Chloride Level 103, Carbon Dioxide Level 24, Anion Gap 7, Blood Urea Nitrogen 12, Creatinine 0.90, Estimat Glomerular Filtration Rate 94, BUN/Creatinine Ratio 13, Glucose Level 262H, Calcium Level 8.5, Corrected Calcium 9.0, Total Bilirubin 0.8, Aspartate Amino Transf (AST/SGOT) 15, Alanine Aminotransferase (ALT/SGPT) 22, Alkaline Phosphatase 48, Total Protein 6.6, Albumin 3.4, Triglycerides Level 99, Cholesterol Level 143, LDL Cholesterol Direct 89, VLDL Cholesterol 20, HDL Cholesterol 43 06/15/22 05:30: White Blood Count 10.3, Red Blood Count 3.93L, Hemoglobin 11.9L, Hematocrit 36L, Mean Corpuscular Volume 92, Mean Corpuscular Hemoglobin 30, Mean Corpuscular Hemoglobin Concent 33, Red Cell Distribution Width 12.0, Platelet Count 229, Mean Platelet Volume 12.5H, Immature Granulocyte % (Auto) 0, Neutrophils (%) ( Auto) 63, Lymphocytes (%) (Auto) 24, Monocytes (%) (Auto) 10, Eosinophils (%) (Auto) 2, Basophils (%) (Auto) 1, Neutrophils # (Auto) 6.5, Lymphocytes # (Auto) 2.4, Monocytes # (Auto) 1.1H, Eosinophils # (Auto) 0.2, Basophils # (Auto) 0.1, Immature Granulocyte # (Auto) 0.0 06/15/22 06:07: Glucometer 265H 06/15/22 11:09: Glucometer 232H 06/15/22 12:16: Prothrombin Time 16.5H, INR Comment 1.3, Activated Partial Thromboplast Time > 200*H 06/15/22 17:20: Glucometer 147H Assessment/Plan/Dx Assessment 1. WG1 1 MTH DFU 2. Cellulitis L. foot 3. Diabetes-poor control 4. PAD s/p revascularization 5. DM2 with neuropathy 6. Obesity Plan: 1. Cleanse daily with Vashe. Apply silver alginate hydrofiber dressing with bordered foam and change daily. 2. Agree with targeted antibiotics. Defer to primary team 3. Improved glycemic control necessary. Defer to primary team 4. Defer to cardiology 5. Adequate off loading will need addressed as outpatient 6. Weight loss advisable. NICOLE HENRIQUEZ MD Jun 15, 2022 17:57
[2022-06-15] MEDS: GABAPENTIN 100 MG (NEURONTIN) CAP PO SCH (20:30)
[2022-06-15] MEDS ORDERED: CLOP75TA28 PO (21:38)
[2022-06-15] MEDS ORDERED: AMLO-250 PO (21:38)
[2022-06-15] MEDS ORDERED: ASPI-1238 PO (21:38)
[2022-06-16] VITALS: BP 129/71
[2022-06-16] MEDS: NS IV 1000 ML 1,000 ML IV SCH ×2 (00:07→08:54)
[2022-06-16 04:00] VITALS: BP 173/89
[2022-06-16 04:49] LABS: ALBUMIN 3.6 GM/DL (3.2-4.5); BASOPHILS # (AUTO) 0.1 10^3/uL (0.0-0.1); BASOPHILS % (AUTO) 1 % (0-10); EOSINOPHILS # (AUTO) 0.3 10^3/uL (0.0-0.3); EOSINOPHILS % (AUTO) 3 % (0-10); HEMATOCRIT 36 % (40-54); HEMOGLOBIN 12.2 g/dL (13.3-17.7); LYMPHOCYTES # (AUTO) 2.1 10^3/uL (1.0-4.0); LYMPHOCYTES % (AUTO) 21 % (12-44); MEAN CORPUSCULAR HEMOGLOBIN 31 pg (25-34); MEAN CORPUSCULAR HGB CONC 34 g/dL (32-36); MEAN CORPUSCULAR VOLUME 91 fL (80-99); MEAN PLATELET VOLUME 12.2 fL (9.0-12.2); MONOCYTES # (AUTO) 1.1 10^3/uL (0.0-1.0); MONOCYTES % (AUTO) 11 % (0-12); NEUTROPHILS # (AUTO) 6.5 10^3/uL (1.8-7.8); NEUTROPHILS % (AUTO) 65 % (42-75); PLATELET COUNT 229 10^3/uL (130-400); WHITE BLOOD COUNT 10.1 10^3/uL (4.3-11.0)
[2022-06-16 04:50] LABS: POTASSIUM 3.7 MMOL/L (3.6-5.0)
[2022-06-16 04:51] LABS: CALCIUM 8.8 MG/DL (8.5-10.1)
[2022-06-16 04:56] LABS: CREATININE SERUM 0.73 MG/DL (0.60-1.30)
[2022-06-16] MEDS: inSUlin ASPART (NovoLOG) 1 UNIT/0.01 ML (CHARGE PER UNIT) SC SCH ×2 (05:28→12:03)
--- NOTE | 2022-06-16 05:42 | Discharge Summary ---
Diagnosis/Chief Complaint Date of Admission Jun 14, 2022 at 13:14 Date of Discharge Discharge Date: Jun 16, 2022 Discharge Diagnosis Assess & Plan/Chief Complaint Occlusion of left popliteal artery -will be undergoing a peripheral angiogram and possible intervention today -lovenox started yesterday -continue pain control -NPO today for procedure S/p debridement of left plantar surface of foot -done 06/[address] [facility] [address] Morris -continue daptomycin -pain control -regular dressing changes -monitor for signs of infection Diabetes mellitus type 2 -continue levemir -sliding scale insulin -given 20 units of levemir this AM due to high blood glucose in prep for surgery -will need diabetic diet when able to eat Hypertension -will defer to management to cardiology Reason Hospital Visit CC: Left leg arterial vascular disease in need of stent with intervention HPI: This is a gentleman who sees Dr. Suhas Joshi as an outpatient. He has a p ast medical history of diabetes. He is noncompliant with insulin for quite some time. HgA1C is 12. He moved from [facility] to higher level of care at [facility] due to peripheral catheterization needed by Dr. Corbett due to arterial ultrasound showing blockage of the left popliteal artery. That would facilitate healing of the left foot wound, status post debridement by Dr. Morris. Maintained on Dap tomycin through PICC line 500 mg IV daily. His blood sugars are much better but still requiring Levemir 60 units BID and Novolin regular insulin 20 units before meals. Discharge Summary Discharge Physical Examination Allergies: Coded Allergies: morphine (Unverified Allergy, Unknown, 07/09/14) Vitals & I&Os Vital Signs Date Time Temp Pulse Resp B/P (MAP) Pulse Ox O2 Delivery O2 Flow Rate FiO2 06/16/22 12:19 06/16/22 09:00 Room Air 06/16/22 08:00 36.8 66 15 96 General Appearance: Alert, Oriented X3, Cooperative Respiratory: Clear to Auscultation Cardiovascular: Regular Rate Psych/Mental Status: Mental Status NL Hospital Course Was the Problem List Reviewed?: Yes Maximilian Fulton is a 66y/o M w/ a PMH of diabetes mellitus and HTN who was transferred here from [facility] on 06/14 after he was found to have an occlusion of his left popliteal artery. He did have a debridement done on his left foot on 8/[address] [facility] [address] Morris. Cardiology was consulted. Pain control and lovenox was started upon his arrival her at [facility]. On 06/15 he underwent a peripheral angiogram done by Dr. Corbett and balloon angioplasty was done on the left popliteal artery. He tolerated the procedure well and the pain in his left leg has decreased. The wound on his left foot was monitored during his stay and regular dressing changes were performed. Also was treated w/ daptomycin. Wound care was consulted. Diabetic management was done w/ sliding scale insulin and 25 units of levemir BID. He will be following up w/ Dr. Corbett as an outpt. Pt will be started on an insulin regiment for his diabetes and will need to continue proper care of his left foot wound as an outpt. KEENAN REAL Jun 16, 2022 12:19 Labs (last 24 hrs) Laboratory Tests 06/14/22 16:36: Glucometer 132H 06/14/22 21:07: Glucometer 111H 06/15/22 05:00: Sodium Level 134L, Potassium Level 3.9, Chloride Level 103, Carbon Dioxide Level 24, Anion Gap 7, Blood Urea Nitrogen 12, Creatinine 0.90, Estimat Glomerular Filtration Rate 94, BUN/Creatinine Ratio 13, Glucose Level 262H, Calcium Level 8.5, Corrected Calcium 9.0, Total Bilirubin 0.8, Aspartate Amino Transf (AST/SGOT) 15, Alanine Aminotransferase (ALT/SGPT) 22, Alkaline Phosphatase 48, Total Protein 6.6, Albumin 3.4, Triglycerides Level 99, Cholesterol Level 143, LDL Cholesterol Direct 89, VLDL Cholesterol 20, HDL Cholesterol 43 06/15/22 05:30: White Blood Count 10.3, Red Blood Count 3.93L, Hemoglobin 11.9L, Hematocrit 36L, Mean Corpuscular Volume 92, Mean Corpuscular Hemoglobin 30, Mean Corpuscular Hemoglobin Concent 33, Red Cell Distribution Width 12.0, Platelet Count 229, Mean Platelet Volume 12.5H, Immature Granulocyte % (Auto) 0, Neutrophils (%) (Auto) 63, Lymphocytes (%) (Auto) 24, Monocytes (%) (Auto) 10, Eosinophils (%) (Auto) 2, Basophils (%) (Auto) 1, Neutrophils # (Auto) 6.5, Lymphocytes # (Auto) 2.4, Monocytes # (Auto) 1.1H, Eosinophils # (Auto) 0.2, Basophils # (Auto) 0.1, Immature Granulocyte # (Auto) 0.0 06/15/22 06:07: Glucometer 265H 06/15/22 11:09: Glucometer 232H 06/15/22 12:16: Prothrombin Time 16.5H, INR Comment 1.3, Activated Partial Thromboplast Time > 200*H 06/15/22 17:20: Glucometer 147H 06/15/22 20:26: Glucometer 175H 06/16/22 04:00: White Blood Count 10.1, Red Blood Count 3.99L, Hemoglobin 12.2L, Hematocrit 36L, Mean Corpuscular Volume 91, Mean Corpuscular Hemoglobin 31, Mean Corpuscular Hemoglobin Concent 34, Red Cell Distribution Width 12.1, Platelet Count 229, Mean Platelet Volume 12.2, Immature Granulocyte % (Auto) 0, Neutrophils (%) (Auto) 65, Lymphocytes (%) (Auto) 21, Monocytes (%) (Auto) 11, Eosinophils (%) (Auto) 3, Basophils (%) (Auto) 1, Neutrophils # (Auto) 6.5, Lymphocytes # (Auto) 2.1, Monocytes # (Auto) 1.1H, Eosinophils # (Auto) 0.3, Basophils # (Auto) 0.1, Immature Granulocyte # (Auto) 0.0, Sodium Level 138, Potassium Level 3.7, Chloride Level 103, Carbon Dioxide Level 26, Anion Gap 9, Blood Urea Nitrogen 9, Creatinine 0.73, Estimat Glomerular Filtration Rate 100, BUN/Creatinine Ratio 12, Glucose Level 100, Calcium Level 8.8, Corrected Calcium 9.1, Total Bilirubin 1.0, Aspartate Amino Transf (AST/SGOT) 35H, Alanine Aminotransferase (ALT/SGPT) 40, Alkaline Phosphatase 50, Total Protein 7.0, Albumin 3.6 06/16/22 10:59: Glucometer 247H Pending Labs Laboratory Tests 06/14/22 16:36: Glucometer 132 06/14/22 21:07: Glucometer 111 06/15/22 05:00: Sodium Level 134, Potassium Level 3.9, Chloride Level 103, Carbon Dioxide Level 24, Anion Gap 7, Blood Urea Nitrogen 12, Creatinine 0.90, Estimat Glomerular Filtration Rate 94, BUN/Creatinine Ratio 13, Glucose Level 262, Calcium Level 8.5, Corrected Calcium 9.0, Total Bilirubin 0.8, Aspartate Amino Transf (AST/SGOT) 15, Alanine Aminotransferase (ALT/SGPT) 22, Alkaline Phosphatase 48, Total Protein 6.6, Albumin 3.4, Triglycerides Level 99, Cholesterol Level 143, LDL Cholesterol Direct 89, VLDL Cholesterol 20, HDL Cholesterol 43 06/15/22 05:30: White Blood Count 10.3, Red Blood Count 3.93, Hemoglobin 11.9, Hematocrit 36, Mean Corpuscular Volume 92, Mean Corpuscular Hemoglobin 30, Mean Corpuscular Hemoglobin Concent 33, Red Cell Distribution Width 12.0, Platelet Count 229, Mean Platelet Volume 12.5, Immature Granulocyte % (Auto) 0, Neutrophils (%) (Auto) 63, Lymphocytes (%) (Auto) 24, Monocytes (%) (Auto) 10, Eosinophils (%) (Auto) 2, Basophils (%) (Auto) 1, Neutrophils # (Auto) 6.5, Lymphocytes # (Auto) 2.4, Monocytes # (Auto) 1.1, Eosinophils # (Auto) 0.2, Basophils # (Auto) 0.1, Immature Granulocyte # (Auto) 0.0 06/15/22 06:07: Glucometer 265 06/15/22 11:09: Glucometer 232 06/15/22 12:16: Prothrombin Time 16.5, INR Comment 1.3, Activated Partial Thromboplast Time > 200 06/15/22 17:20: Glucometer 147 06/15/22 20:26: Glucometer 175 06/16/22 04:00: White Blood Count 10.1, Red Blood Count 3.99, Hemoglobin 12.2, Hematocrit 36, Mean Corpuscular Volume 91, Mean Corpuscular Hemoglobin 31, Mean Corpuscular Hemoglobin Concent 34, Red Cell Distribution Width 12.1, Platelet Count 229, Mean Platelet Volume 12.2, Immature Granulocyte % (Auto) 0, Neutrophils (%) (Auto) 65, Lymphocytes (%) (Auto) 21, Monocytes (%) (Auto) 11, Eosinophils (%) (Auto) 3, Basophils (%) (Auto) 1, Neutrophils # (Auto) 6.5, Lymphocytes # (Auto) 2.1, Monocytes # (Auto) 1.1, Eosinophils # (Auto) 0.3, Basophils # (Auto) 0.1, Immature Granulocyte # (Auto) 0.0, Sodium Level 138, Potassium Level 3.7, Chloride Level 103, Carbon Dioxide Level 26, Anion Gap 9, Blood Urea Nitrogen 9, Creatinine 0.73, Estimat Glomerular Filtration Rate 100, BUN/Creatinine Ratio 12, Glucose Level 100, Calcium Level 8.8, Corrected Calcium 9.1, Total Bilirubin 1.0, Aspartate Amino Transf (AST/SGOT) 35, Alanine Aminotransferase (ALT/SGPT) 40, Alkaline Phosphatase 50, Total Protein 7.0, Albumin 3.6 06/16/22 10:59: Glucometer 247 Discharge Home Medications: Active Scripts Active Aspirin EC (Aspirin) 81 Mg Tablet.dr 81 Mg PO DAILY Amlodipine Besylate 5 Mg Tablet 5 Mg PO DAILY Clopidogrel (Clopidogrel Bisulfate) 75 Mg Tablet 75 Mg PO DAILY Advocate Pen Paterson (Paterson, Insulin Disposable) 29 Gauge X 1/2" Dis.needle Each MC ACHS Oxyir Tablet (Oxycodone HCl) 5 Mg Tab 5 Mg PO Q4HR PRN NovoLIN R Flexpen (Insulin Regular, Human) 100 Unit/Ml (3 Ml) Insuln.pen 10 Unit SQ AC Levemir Flextouch (Insulin Detemir) 100 Unit/Ml (3 Ml) Insuln.pen 30 Units SC BID Reported Daptomycin 500 Mg Vial 500 Mg IV DAILY Pantoprazole Sodium 40 Mg Tablet.dr 40 Mg PO DAILY Lisinopril 20 Mg Tablet 20 Mg PO DAILY Gabapentin 100 Mg Capsule 100 Mg PO TID Instructions to patient/family Please see electronic discharge instructions given to patient. Diagnosis/Problems Diagnosis/Problems (1) Occlusion of left popliteal artery Clinical Quality Measures DVT/VTE Risk/Contraindication: Contraindications-Mechi: Other *list below* Other: pvd MARYLIN HOLLOWAY DO Jun 16, 2022 05:41
[2022-06-16 08:00] VITALS: BP 153/80
[2022-06-16] MEDS: SENNOSIDES 8.6 MG (SENOKOT) TAB PO SCH (08:52)
[2022-06-16] MEDS: DOCUSATE SODIUM 100 MG (COLACE) CAP PO SCH (08:52)
[2022-06-16] MEDS: amLODIPine 5 MG (NORVASC) TAB PO SCH (08:53)
[2022-06-16] MEDS: GABAPENTIN 100 MG (NEURONTIN) CAP PO SCH (08:53)
[2022-06-16] MEDS ORDERED: PANTOPRAZOLE 40 MG (PROTONIX) TAB PO SCH (09:00)
[2022-06-16] MEDS ORDERED: CLOPIDOGREL 75 MG (PLAVIX) TABLET PO SCH (09:00)
[2022-06-16] MEDS ORDERED: ASPIRIN E.C. 81 MG (ECOTRIN) TAB PO SCH (09:00)
[2022-06-16] MEDS ORDERED: DAPTOMYCIN 500 MG IV SCH (09:00)
--- NOTE | 2022-06-16 09:47 | Cardiology Progress Note ---
Subjective Date Seen by Provider: Jun 16, 2022 Time Seen by Provider: 09:46 Subjective/Events-last exam Patient was seen at bedside, sitting comfortably, feeling better. No new complaint Review of Systems General: No Chills, No Night Sweats, No Fatigue, No Malaise, No Appetite, No Other HEENT: No Head Aches, No Visual Changes, No Eye Pain, No Ear Pain, No Dysphasia , No Sinus Congestion, No Post Nasal Drip, No Sore Throat, No Other Pulmonary: No Dyspnea, No Cough, No Pleuritic Chest Pain, No Other Cardiovascular: No: Chest Pain, Palpitations, Orthopnea, Paroxysmal Noc. Dyspnea, Edema, Lt Headedness, Other Objective-Cardiology Exam Last Set of Vital Signs Vital Signs 06/16/22 08:00 Temp 36.8 Pulse 66 Resp 15 B/P (MAP) 153/80 (104) Pulse Ox 96 O2 Delivery Room Air I&O Intake and Output 06/16/22 00:00 Intake Total 2060 ml Balance 2060 ml Intake Oral 1000 ml IV Total 1060 ml # Voids 4 General: Alert, Oriented X3 Neck: Supple Lungs: Clear to Auscultation, Normal Air Movement Heart: Regular Rate, Normal S1, Normal S2, No Murmurs Abdomen: Soft, No Tenderness Extremities: No Clubbing, Other (left leg swollen and erythermatous, wound present on plantar surface of left foot) Skin: No Rashes Neuro: Normal Speech Psych/Mental Status: Mental Status NL, Mood NL Results Lab Laboratory Tests 06/16/22 04:00 A/P-Cardiology Admission Diagnosis Peripheral arterial disease Foot ulcer Hypertension Hyperlipidemia Diabetes mellitus. Assessment/Plan Peripheral vascular disease, with foot ulcer. Arterial duplex to the lower extremities suggestive of high-grade stenosis at the left popliteal artery greater than 75%. Status post balloon angioplasty to the left popliteal artery using drug coated balloon Lutonic 6 x 40 with excellent results. Groin is healing well, has palpable dorsalis pedis pulse on the left side today Okay for discharge on aspirin and Plavix and follow-up as an outpatient Foot ulcer, underwent debridement with Dr. Morris on June 14, 2022 Hypertension, continue current medication and monitor Hyperlipidemia, evaluate lipid profile Diabetes mellitus, followed and managed by primary care physician Obstructive sleep apnea, intolerant to CPAP Obesity, BMI 34, we discussed weight loss. JOE STRICKLAND MD Jun 16, 2022 09:47
[2022-06-16] MEDS: DAPTOmycin INJECTION 500 MG in NS (IVPB) 50 ML IV SCH (11:22)
--- NOTE | 2022-06-16 12:20 | Progress Note ---
KEENAN REAL 06/16/22 1219: Progress Note Maximilian Fulton is a 66y/o M w/ a PMH of diabetes mellitus and HTN who was transferred here from [place] on 06/14 after he was found to have an occlusion of his left popliteal artery. He did have a debridement done on his left foot on 06/[address] [place] [address] Morris. Cardiology was consulted. Pain control and lovenox was started upon his arrival her at [facility]. On 06/15 he underwent a peripheral angiogram done by Dr. Corbett and balloon angioplasty was done on the left popliteal artery. He tolerated the procedure well and the pain in his left leg has decreased. The wound on his left foot was monitored during his stay and regular dressing changes were performed. Also was treated w/ daptomycin. Wound care was consulted. Diabetic management was done w/ sliding scale insulin and 25 units of levemir BID. He will be following up w/ Dr. Corbett as an outpt. Pt will be started on an insulin regiment for his diabetes and will need to continue proper care of his left foot wound as an outpt. MARYLIN HOLLOWAY DO 06/16/221: Supervisory-Addendum Brief Verification & Attestation Participated in pt care: history, MDM, physical Personally performed: exam, history, MDM, supervision of care Care discussed with: Medical Student Procedures: n/a Results interpretation: Verified all documentation Verification and Attestation of Medical Student E/M Service A medical student performed and documented this service in my presence. I rev iewed and verified all information documented by the medical student and made modifications to such information, when appropriate. I personally performed the physical exam and medical decision making. Marylin Holloway, Jun 16, 2022,21:11 KEENAN REAL Jun 16, 2022 12:19 MARYLIN HOLLOWAY DO Jun 16, 2022 21:11
== END 2022-06-16 05:42 | disposition home or self-care (01) ==
LOC: CSD 06-14 13:14 → UNDOADMOB 06-14 13:14 → CSD 06-14 13:36 → UNDODISOB 06-16 12:20
PROVIDERS: ADMIT Internal Medicine; ATTEND Internal Medicine
DX: E11.51 Type 2 diabetes mellitus with diabetic peripheral angiopathy without gangrene (principal); I70.202 Unspecified atherosclerosis of native arteries of extremities, left leg; E11.621 Type 2 diabetes mellitus with foot ulcer; L97.509 Non-pressure chronic ulcer of other part of unspecified foot with unspecified severity; E78.5 Hyperlipidemia, unspecified; G47.33 Obstructive sleep apnea (adult) (pediatric); E66.9 Obesity, unspecified; I11.9 Hypertensive heart disease without heart failure; Z68.34 Body mass index [BMI] 34.0-34.9, adult; Z98.890 Other specified postprocedural states; Z79.84 Long term (current) use of oral hypoglycemic drugs; Z79.899 Other long term (current) drug therapy; Z79.82 Long term (current) use of aspirin; Z79.02 Long term (current) use of antithrombotics/antiplatelets; Z79.4 Long term (current) use of insulin
CPT/HCPCS: 36247; 36248; 37224; 71045; 75716; 80053 ×2; 80061; 82947 ×3; 85025 ×2; 85347; 85610; 85730; 93306; 96361; 96372 ×2; 96374; 96375; 96376 ×3; C1725; C1760; C1769 ×2; C1887; C1894 ×3; C2623; 36415; 85027

== ENCOUNTER → 2022-12-13 | Outpatient (CLI) | payer MEDICARE ==
[~2022-12-13] VITALS: Ht 187 cm; Wt 123.0 kg
[~2022-12-13] MED LIST changes: +ACHD5005 PO; +AMLO-167 PO; +AMLO-250 PO; +ASPI-1238 PO; +CATHETER FLUSH 10 ML SYR IVP PRN; +CINN500C2 PO; +CLOP75TA28 PO; +DAPT500V18 IV; +FISH400C PO; +FURO40TA4 PO; +GABA-486 PO; +INSU100I29 SC; +INSU100I48 SQ; +INSU100I51 SQ; +INSU100I88 SQ; +LISI20TA26 PO; +MULT-1136 PO; +OXC5T PO; +PANT40TA52 PO; +POTA-51 PO; +REGADENOSON 0.4 MG/5 ML SYR (LEXISCAN) IV ONE; +[UNRECOGNIZED DRUG - CODE] MC
[2022-12-13 09:16] VITALS: BP 164/83
--- NOTE | 2022-12-13 11:59 | Cardiology Stress Test Report ---
Stress Test Report Date of Procedure/Referring: Date of Procedure: Dec 13, 2022 PCP Suhas Diaz MD Admitting Physician Admitting Physician: Attending Physician: Jacqueline Corbett MD Baseline Heart Rate: 61 Baseline Blood Pressure: Blood Pressure Systolic: 164 Blood Pressure Diastolic: 83 Baseline Vitals Vital Signs Date Time Temp Pulse Resp B/P (MAP) Pulse Ox O2 Delivery O2 Flow Rate FiO2 12/13/22 09:16 61 164/83 (110) 98 Baseline EKG: Baseline EKG: NSR Summary After explaining the procedure to the patient, he signed a consent and then brought to the stress nuclear laboratory. Patient received 0.4 mg Lexiscan for stress test, ECG, heart rate and blood pressure were monitored continuously. Resting and stress dose of radio tracer were injected, imaging was acquired and reviewed in short axis, horizontal long axis and vertical long axis views. TID: 1.06 SSS: 2 SDS: 2 EF: 57 Patient tolerated Lexiscan well No significant ischemia or infarction on SPECT images Normal left ventricular size, EF 57% Copy Copies To 1: SUHAS DIAZ MD, BASHAR J MD Dec 13, 2022 11:59
== END ==
LOC: CARD 07:54
PROVIDERS: ATTEND Internal Medicine Cardiovascular Disease
DX: I10 Essential (primary) hypertension (principal); I25.10 Atherosclerotic heart disease of native coronary artery without angina pectoris; R07.2 Precordial pain
CPT/HCPCS: 78452; 93017; A9502

== ENCOUNTER 2022-12-15 07:09 | Day surgery (SDC) | payer MEDICARE ==
[2022-12-15] VITALS (11 sets, daily range): BP systolic 119–154; BP diastolic 66–77
[~2022-12-15] VITALS: Ht 188 cm; Wt 128.4 kg
[~2022-12-15 07:09] MED LIST changes: -CATHETER FLUSH 10 ML SYR IVP PRN; -REGADENOSON 0.4 MG/5 ML SYR (LEXISCAN) IV ONE
[2022-12-15] MEDS ORDERED: LIDOCAINE 1% INJ 20 ML VIAL ONE (07:15)
[2022-12-15] MEDS ORDERED: NS IV 1000 ML 1,000 ML IV SCH ×2 (07:15→12:00)
[2022-12-15] MEDS ORDERED: NS IV 1000 ML 1,000 ML ONE (07:15)
[2022-12-15] MEDS ORDERED: HEParin (CATH LAB) 2,000 ML IV ONE (07:15)
[2022-12-15 07:53] LABS: HEMATOCRIT 39 % (40-54); HEMOGLOBIN 13.4 g/dL (13.3-17.7); MEAN CORPUSCULAR HEMOGLOBIN 30 pg (25-34); MEAN CORPUSCULAR HGB CONC 34 g/dL (32-36); MEAN CORPUSCULAR VOLUME 89 fL (80-99); MEAN PLATELET VOLUME 12.5 fL (9.0-12.2); PLATELET COUNT 267 10^3/uL (130-400); WHITE BLOOD COUNT 8.3 10^3/uL (4.3-11.0)
--- NOTE | 2022-12-15 07:53 | Diagnostic Imaging Report ---
INDICATION: pvd, non healing wound, peripheral COMPARISON: 06/15/2022 FINDINGS: Single frontal view of the chest demonstrates normal heart size and pulmonary vascularity. The lungs are well aerated and clear. No large pleural effusion or pneumothorax is seen. The visualized osseous structures show no acute abnormalities. IMPRESSION: 1. No acute cardiopulmonary process. Dictated by: Dictated on workstation # [id number]
[2022-12-15 07:54] LABS: BILIRUBIN,URINE NEGATIVE (NEGATIVE); CLARITY,URINE CLEAR; COLOR,URINE YELLOW; GLUCOSE, URINE (UA) NEGATIVE (NEGATIVE); KETONES,URINE NEGATIVE (NEGATIVE); LEUKOCYTE ESTERASE ,URINE NEGATIVE (NEGATIVE); NITRITE,URINE NEGATIVE (NEGATIVE); PROTEIN,URINE NEGATIVE (NEGATIVE)
[2022-12-15 08:14] LABS: BACTERIA,URINE NEGATIVE /HPF; WBC,URINE RARE /HPF
[2022-12-15 08:16] LABS: ALBUMIN 4.4 GM/DL (3.2-4.5); BILIRUBIN,TOTAL 0.7 MG/DL (0.1-1.0); CALCIUM 9.6 MG/DL (8.5-10.1); CREATININE SERUM 0.94 MG/DL (0.60-1.30); POTASSIUM 4.2 MMOL/L (3.6-5.0); TOTAL PROTEIN 7.8 GM/DL (6.4-8.2)
[2022-12-15 08:17] LABS: INR 1.1 (0.8-1.4); PROTHROMBIN TIME PATIENT 14.6 SEC (12.2-14.7)
--- NOTE | 2022-12-15 10:19 | Cardiac Procedure Note-CS/ASA ---
Pre-Procedure Note Pre-Op Procedure Note Date of Available H&P: Nov 30, 2022 Date H&P Reviewed: Dec 15, 2022 Time H&P Reviewed: 10:00 History & Physical: H&P Reviewed, Patient Examed, No changes noted Pre-Operative Diagnosis: Critical limb ischemia Conscious Sedation Pre-Proced Time 10:00 ASA Score 3 For ASA 3 and 4: Consider anesthesia and medical clearance. Also, for patients with a history of failed moderate sedation consider anesthesia. Airway Lungs Heart ASA score ASA 1: a normal healthy patient ASA 2: a patient with a mild systemic disease (mid diabetes, controlled hypertension, obesity ASA 3: a patient with a severe systemic disease that limits activity (angina, COPD, prior Myocardial infarction) ASA 4: a patient with an incapacitating disease that is a constant threat to life (CHF, renal failure) ASA 5: a moribund patient not expected to survive 24 hrs. (ruptured aneurysm) ASA 6: a declared brain- patient whose organs are being harvested. For emergent operations, add the letter E after the classification Mallampati Classification Grade 3 Sedation Plan Analgesia, Amnesia, Plan communicated to team members, Discussed options with patient/fam, Discussed risks with patient/fam The patient is an appropriate candidate to undergo the planned procedure, sedation, and anesthesia. The patient immediately re-assessed prior to indication. JOE STRICKLAND MD Dec 15, 2022 10:19
[2022-12-15] MEDS ORDERED: MIDAZOLAM 5 MG/5 ML (VERSED) VIAL ONE ×2 (10:25→11:43)
[2022-12-15] MEDS ORDERED: fentaNYL INJ 100 MCG/2 ML AMP ONE ×2 (10:25→11:43)
[2022-12-15] MEDS ORDERED: HEParin 1000 UNIT/ML (10ML VIAL) FOR BOLUS ONE (11:25)
[2022-12-15] MEDS ORDERED: PATIENT MAY USE OWN MEDS, ALL PO SCH (12:00)
--- NOTE | 2022-12-15 12:02 | Discharge Inst-Post CATH ---
Discharge Inst-CATH/EP Problems Reviewed?: Yes Post Cardiac Cath/EP D/C Inst Follow Up/Plan Appointment with Dr. Corbett in 2 to 4 weeks <b>CARDIAC CATH/EP PROCEDURE DISCHARGE INSTRUCTIONS</b> ACTIVITY * Go Home directly and rest. * Limit activity of the leg (or wrist if it was used) for 7 days including aerobics, swimming, jogging, bicycling, etc. * Restrict stair-climbing for 7 days if possible, if not, climb up with your non-cath leg, then bring together on the same step. * Avoid lifting, pushing, pulling or excessive movement of the affected extremity for 7 days. * Customary sexual activity may be resumed after 2 days-use caution not to use a position that strains or causes pain to the affected extremity. * No driving for 24 hours. * NO SMOKING. * Avoid straining for bowel movements for 7 days. * Gentle walking on level ground is allowed. * Returning to work will depend on the type of procedure and the results. Your doctor will discuss this with you. CALL YOUR DOCTOR FOR ANY OF THE FOLLOWING: *If bleeding from the puncture site occurs- Apply gentle pressure to site with clean cloth and call your doctor or EMS. * If a knot or lump forms under the skin, increases in size, or causes pain. * If bruising appears to be worsening or moving further down your leg instead of disappearing. * Temperature above 101 F. CARE OF YOUR GROIN INCISION; * Bruising or purple discoloration of the skin near the puncture site is common. * You may shower only, no bathtub bathing for 5 days. Be careful to avoid slipping as your leg may feel stiff. * If a closure device was used on your femoral artery, please see the attached guide regarding care of the device and your leg. * Leave dressing on FOR 24 hours. CARE OF YOUR WRIST INCISION; * Bruising or purple discoloration of the skin near the puncture site is common. * You may shower. * DO NOT submerge wrist. * Leave dressing on FOR 24 hours. JOE CORBETT MD Dec 15, 2022 12:02
--- NOTE | 2022-12-15 12:06 | Peripheral Report ---
Peripheral Report Physician (s)/Business Proposal Rep (s) Physician JOE STRICKLAND MD Pre-Procedure Diagnosis Pre-Procedure Diagnosis: Critical limb ischemia Post-Procedure Note Procedure Start Date: Dec 15, 2022 Name of Procedure: Bilateral lower extremities runoff Third order Additional imaging Findings/Procedure Note PROCEDURE NOTE: 67-year-old gentleman with peripheral arterial disease, had balloon angioplasty for total occlusion of the left popliteal artery. Excellent results. Then recently started to have ulceration, abnormal SHERRY. After explaining the procedure to the patient, all pros and cons were explained, all questions were answered. The patient signed the consent and then he was placed on the cardiac catheterization laboratory. The patient was placed on the cardiac catheterization laboratory. Groin was prepped SL fashion local anesthesia was used. Sheath placed in the right femoral artery, runoff to the right leg was done through the sheath then I did cross over with a rim catheter did runoff to the left leg with a rim then I advanced a straight catheter to the popliteal artery and did angiogram to the trifurcation. Patient had total occlusion of the anterior tibial artery reconstructed at the foot level. I did multiple attempts using command 18 then mini 18 and command 14 wire without success in crossing the total occlusion. I did manual injection in the anterior tibial artery. At this point I decided to abort and plan for the procedure with pedal access at a later point FINDINGS: Right lower extremity, mild disease was noted down to the trifurcation, below the trifurcation there is no significant obstructive disease Left lower extremity: Left common iliac and common femoral artery are normal Left SFA is normal Left popliteal artery has 50 to 60% stenosis, nonobstructive disease. Left posterior tibial and peroneal arteries are normal Left anterior tibial artery is totally occluded proximally, reconstructed by collaterals at the foot level. Attempt to cross the lesion with multiple wires was unsuccessful. CONCLUSIONS: 1. Total occlusion of the left anterior tibial artery reconstructed by collaterals at the foot level. Failed attempt for intervention 2. Moderate disease at the left popliteal artery nonobstructive disease 3. Otherwise nonobstructive disease DISCUSSION AND RECOMMENDATIONS: We will arrange for referral to a tertiary care center with possible attempt with pedal access Anesthesia Type: Conscious Sedation Estimated blood loss (mL): 30 ml Contrast Amount: 60 ml Total Radiation Dose: 112 mGy Post-Procedure Diagnosis Post-operative diagnosis: Critical limb ischemia Peripheral arterial disease Hypertension Hyperlipidemia JOE STRICKLAND MD Dec 15, 2022 12:06
[2022-12-15] MEDS ORDERED: oxyCODONE/APAP 5/325MG (PERCOCET 5) TABLET PO NR (15:00)
== END 2022-12-15 17:15 | disposition home or self-care (01) ==
LOC: CATH 07:09 → CSD 12:26 → CATH 17:15
PROVIDERS: ATTEND Internal Medicine Cardiovascular Disease
DX: I70.223 Atherosclerosis of native arteries of extremities with rest pain, bilateral legs (principal); I70.92 Chronic total occlusion of artery of the extremities; E11.42 Type 2 diabetes mellitus with diabetic polyneuropathy; I10 Essential (primary) hypertension; I65.23 Occlusion and stenosis of bilateral carotid arteries; G47.33 Obstructive sleep apnea (adult) (pediatric); E66.9 Obesity, unspecified; E78.5 Hyperlipidemia, unspecified; Z79.899 Other long term (current) drug therapy; Z68.36 Body mass index [BMI] 36.0-36.9, adult
CPT/HCPCS: 36247; 36248; 71045; 75716; 80053; 80061; 81000; 85027; 85610; 85730; 87081; 93005; C1760; C1769 ×4; C1887 ×3; C1894 ×2; 36415

== ENCOUNTER → 2023-08-27 | Outpatient (CLI) | payer MEDICARE ==
[~2023-08-27] VITALS: Ht 188 cm; Wt 122.5 kg
[~2023-08-27] MED LIST changes: -INSU100I29 SC; +INSU100I30 SC; -INSU100I48 SQ; +INSU100I64 SQ; +POTA-330 PO; -POTA-51 PO; +RIVA2.5T5 PO
== END | disposition home or self-care (01) ==
LOC: PREOP 07:58
PROVIDERS: ATTEND Specialist
DX: Z01.818 Encounter for other preprocedural examination (principal)

== ENCOUNTER 2023-08-31 09:27 | Day surgery (SDC) | payer MEDICARE ==
[~2023-08-31] VITALS: Ht 188 cm; Wt 122.5 kg
[2023-08-31] MEDS ORDERED: MOXIFLOXACIN OPHTH SOLN 5 MG/ML 0.5 ML SYRINGE OP ONE (10:30)
[2023-08-31] MEDS ORDERED: LIDOCAINE PF 1% 2 ML VIAL IR PRN (10:30)
[2023-08-31] MEDS ORDERED: POVIDONE IODINE OPHTH SOLN 5% 30 ML OP ONE (10:30)
[2023-08-31] MEDS ORDERED: TETRACAINE 0.5% OPHTH SOLN 4 ML BTL (SINGLE DOSE ONLY) OU PRN ×2 (10:30)
[2023-08-31] MEDS: PHENYLEPHRINE 10% OPHTH SOLN 5 ML BTL OU SCH ×3 (10:36→10:49)
[2023-08-31] MEDS: TROPICAMIDE 1% OPH SOLN (MYDRIACYL) 15 ML BTL OP SCH ×4 (10:36→11:16)
[2023-08-31 10:39] VITALS: BP 135/71
[2023-08-31] MEDS: TETRACAINE 0.5% OPHTH SOLN 5 ML BTL OU PRN ×3 (10:41→10:49)
--- NOTE | 2023-08-31 11:05 | Ophthalmologist Pre-Op Note ---
Pre-Operative Progress Note H&P Reviewed The H&P was reviewed, patient examined and no changes noted. Date H&P Reviewed: Aug 31, 2023 Time H&P Reviewed: 11:05 Pre-Op Dx Cataract, Right Eye GELACIO BATISTA MD Aug 31, 2023 11:05
[2023-08-31] MEDS ORDERED: MIDAZOLAM INJ 2 MG/2 ML VIAL ONE (11:10)
[2023-08-31] MEDS: TIMOLOL 0.5% (CATARACTS) 0.3 ML BTL OU PRN ×2 (11:18→11:23)
--- NOTE | 2023-08-31 11:27 | Ophthalmology Operative Report ---
Cataract removal/placement IOL PREOPERATIVE DIAGNOSIS: Cataract Right Eye POSTOPERATIVE DIAGNOSIS: Cataract Right Eye PROCEDURE: Cataract removal and placement of posterior chamber implant, right eye SURGEON: Niall Batista ANESTHESIA: Topical with sedation COMPLICATIONS: None ESTIMATED BLOOD LOSS: Minimal DESCRIPTION OF PROCEDURE: After proper informed consent was obtained, the patient, a 68 male, was taken to the Operating Room and the right eye was anesthetized with tetracaine. The right eye was then prepped and draped in the usual manner. A wire lid speculum was placed. A paracentesis was made at the left hand position. Preservative free lidocaine was injected into the anterior chamber followed by viscoelastic. A clear corneal incision was made in the temporal position. A capsulorrhexis was preformed and the central nuclear and cortical material were removed. The posterior capsule was polished and Srikanth 19.0 [id number] IOL was placed into the capsular bag. The residual viscoelastic was aspirated and balanced saline solution was injected into the anterior chamber. Moxifloxacin was injected into the anterior chamber. The wound was checked and found to be water tight. The patient tolerated the procedure well without complications. NIALL BATISTA MD Aug 31, 2023 11:26
[2023-08-31 11:33] VITALS: BP 142/71
--- NOTE | 2023-08-31 12:48 | Anesthesia-General Post-Op ---
MAC Patient Condition Mental Status/LOC: Same as Preop Cardiovascular: Satisfactory Nausea/Vomiting: Absent Respiratory: Satisfactory Pain: Controlled Complications: Absent Post Op Complications Complications None Follow Up Care/Instructions Patient Instructions None needed. Anesthesiology Discharge Order Discharge Order Patient is doing well, no complaints, stable vital signs, no apparent adverse anesthesia problems. No complications reported per nursing. PARIS MACHADO CRNA Aug 31, 2023 12:48
== END 2023-08-31 11:35 | disposition home or self-care (01) ==
LOC: SDC 09:27
PROVIDERS: ATTEND Specialist
DX: E11.36 Type 2 diabetes mellitus with diabetic cataract (principal); H25.9 Unspecified age-related cataract; Z79.4 Long term (current) use of insulin
CPT/HCPCS: 66984; 82947; V2632

== ENCOUNTER 2023-09-07 10:01 | Outpatient (CLI) | payer MEDICARE ==
[~2023-09-07] VITALS: Ht 188 cm; Wt 122.5 kg
== END 2023-09-07 14:00 | disposition home or self-care (01) ==
LOC: PREOP 10:01
PROVIDERS: ATTEND Specialist
DX: Z01.818 Encounter for other preprocedural examination (principal)

== ENCOUNTER 2023-09-14 08:23 | Day surgery (SDC) | payer MEDICARE ==
[~2023-09-14] VITALS: Ht 188 cm; Wt 122.5 kg
[2023-09-14 08:35] VITALS: BP 132/68
[2023-09-14] MEDS: TETRACAINE 0.5% OPHTH SOLN 5 ML BTL OU PRN ×4 (08:45→09:09)
[2023-09-14] MEDS ORDERED: MOXIFLOXACIN OPHTH SOLN 5 MG/ML 0.5 ML SYRINGE OP ONE (08:45)
[2023-09-14] MEDS ORDERED: POVIDONE IODINE OPHTH SOLN 5% 30 ML OP ONE (08:45)
[2023-09-14] MEDS ORDERED: LIDOCAINE PF 1% 2 ML VIAL IR PRN (08:45)
[2023-09-14] MEDS ORDERED: TIMOLOL 0.5% (CATARACTS) 0.3 ML BTL OU PRN (08:45)
[2023-09-14] MEDS: TROPICAMIDE 1% OPH SOLN (MYDRIACYL) 15 ML BTL OP SCH ×3 (08:50→09:09)
[2023-09-14] MEDS: PHENYLEPHRINE 10% OPHTH SOLN 5 ML BTL OU SCH ×3 (08:50→09:09)
--- NOTE | 2023-09-14 09:31 | Ophthalmologist Pre-Op Note ---
Pre-Operative Progress Note H&P Reviewed The H&P was reviewed, patient examined and no changes noted. Date H&P Reviewed: Sep 14, 2023 Time H&P Reviewed: 09:31 Pre-Op Dx Cataract, Left Eye GELACIO BATISTA MD Sep 14, 2023 09:31
[2023-09-14] MEDS ORDERED: MIDAZOLAM INJ 2 MG/2 ML VIAL ONE (09:32)
--- NOTE | 2023-09-14 09:55 | Ophthalmology Operative Report ---
Cataract removal/placement IOL PREOPERATIVE DIAGNOSIS: Cataract Left Eye POSTOPERATIVE DIAGNOSIS: Cataract Left Eye PROCEDURE: Cataract removal and placement of posterior chamber implant, left eye SURGEON: Niall Batista ANESTHESIA: Topical with sedation COMPLICATIONS: None ESTIMATED BLOOD LOSS: Minimal DESCRIPTION OF PROCEDURE: After proper informed consent was obtained, the patient, a 68 male, was taken to the Operating Room and the left eye was anesthetized with tetracaine. The left eye was then prepped and draped in the usual manner. A wire lid speculum was placed. A paracentesis was made at the left hand position. Preservative free lidocaine was injected into the anterior chamber followed by viscoelastic. A clear corneal incision was made in the temporal position. A capsulorrhexis was preformed and the central nuclear and cortical material were removed. The posterior capsule was polished and an Srikanth 20.0 CNA0T0 was placed into the capsular bag. The residual viscoelastic was aspirated and balanced saline solution was injected into the anterior chamber. Moxifloxacin was injected into the anterior chamber. The wound was checked and found to be water tight. The patient tolerated the procedure well without complications. NIALL BATISTA MD Sep 14, 2023 09:55
[2023-09-14 10:06] VITALS: BP 132/68
--- NOTE | 2023-09-14 14:25 | Anesthesia-General Post-Op ---
MAC Patient Condition Mental Status/LOC: Same as Preop Cardiovascular: Satisfactory Nausea/Vomiting: Absent Respiratory: Satisfactory Pain: Controlled Complications: Absent Post Op Complications Complications None Follow Up Care/Instructions Patient Instructions None needed. Anesthesiology Discharge Order Discharge Order Patient is doing well, no complaints, stable vital signs, no apparent adverse anesthesia problems. No complications reported per nursing. GONZALEZ ERNST CRNA Sep 14, 2023 14:25
== END 2023-09-14 10:30 | disposition home or self-care (01) ==
LOC: SDC 08:23
PROVIDERS: ATTEND Specialist
DX: H26.9 Unspecified cataract (principal); E66.01 Morbid (severe) obesity due to excess calories
CPT/HCPCS: 66984; V2632